=== PATIENT | female | born 2000 | race Caucasian/White ===

== ENCOUNTER 2022-01-18 17:12 | Emergency (ER) | payer SELFPAY ==
[~2022-01-18] VITALS: Ht 157.5 cm; Wt 63.5 kg
--- NOTE | 2022-01-18 17:20 | NUR ---
TO ER BED 10. BIB SISTER C/O ABDOMINAL PAIN RADIATING TO LOWER BACK PAIN STARTED 2PM TODAY. DENIES INJURY. VITAL SIGNS ARE STABLE. BREATHING IS EVEN AND UNLABORED.
--- NOTE | 2022-01-18 17:23 | NUR ---
URINE SPECIMEN COLLECTED AND SENT TO LAB.
[2022-01-18 17:49] LABS: BASOPHILS % (AUTO) 0.4 % (0.0-2.0); EOSINOPHILS % (AUTO) 0.7 % (0.0-6.0); HEMATOCRIT 38 % (33-45); HEMOGLOBIN 12.4 g/dL (11.5-14.8); LYMPHOCYTES % (AUTO) 44.6 % (20.0-44.0); MEAN CORPUSCULAR HGB CONC 33 g/dl (31.0-36.0); MEAN CORPUSCULAR VOLUME 90 fL (82-100); MONOCYTES # (AUTO) 0.5 K/uL (0.1-1.30); NEUTROPHILS # (AUTO) 3.1 K/uL (1.8-8.9); NEUTROPHILS % (AUTO) 47.3 % (43.0-81.0); PLATELET COUNT (AUTO) 247 K/uL (150-450); RED BLOOD CELL COUNT(AUTO) 4.19 MIL/uL (4.0-5.2); WHITE BLOOD COUNT (AUTO) 6.6 K/uL (4.3-11.0)
[2022-01-18 17:58] LABS: BILIRUBIN,URINE NEGATIVE (NEGATIVE); COLOR,URINE YELLOW (YELLOW); LEUKOCYTE ESTERASE ,URINE MODERATE (NEGATIVE); NITRITE, URINE NEGATIVE (NEGATIVE); PROTEIN,URINE NEGATIVE (NEGATIVE); UGLUCOSE NEGATIVE (NEGATIVE); UROBILINOGEN,URINE 0.2 EU/dL (0.2)
[2022-01-18] MEDS ORDERED: IV NS 0.9% 1,000 ML BAG IV ONE (18:00)
[2022-01-18 18:06] LABS: ALBUMIN 4.4 g/dL (3.4-5.0); BILIRUBIN,DIRECT 0.2 mg/dL (0.0-0.2); BILIRUBIN,TOTAL 0.8 mg/dL (0.2-1.0); CALCIUM, SERUM 9.4 mg/dL (8.5-10.1); CREATININE 0.6 mg/dL (0.6-1.3); POTASSIUM 3.7 mmol/L (3.5-5.1); TOTAL PROTEIN, SERUM 7.8 g/dL (6.4-8.2)
[2022-01-18 18:10] LABS: BACTERIA,URINE 3+ /HPF (None Seen); RBC,URINE 0-2 /HPF (0-2); WBC,URINE 51-80 /HPF (0-3)
[2022-01-18] MEDS ORDERED: CEPH500T PO (19:06)
[2022-01-18] MEDS ORDERED: PHEN-704 PO (19:06)
[2022-01-18 19:22] VITALS: BP 112/69
--- NOTE | 2022-01-18 19:22 | NUR ---
Patient discharged to home in stable condition. Written and verbal after care instructions given. Patient verbalizes understanding of instruction.IV removed. Catheter intact and site benign. Pressure and 4x4 applied to site. No bleeding noted.
[2022-01-18] MEDS ORDERED: CEFTRIAXONE 1 G VIAL IM ONE (19:30)
== END 2022-01-18 19:22 | disposition home or self-care (01) ==
LOC: ER 17:17
DX: R10.9 Unspecified abdominal pain (principal)
CPT/HCPCS: 36415; 74176; 80048; 80076; 81001; 83690; 84703; 85025; 87086; 96360; 99284; J7030